=== PATIENT | female | born 1960 | race Caucasian/White ===

== ENCOUNTER 2025-01-12 21:05 | Emergency (ER) | payer SELFPAY ==
[2025-01-12 21:06] VITALS: BP 206/187
[2025-01-12 23:18] VITALS: BP 184/91
[2025-01-13] VITALS: BP 167/90; BMI 32.4
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
[2025-01-13 03:54] VITALS: BP 126/98
== END 2025-01-13 03:57 | disposition home or self-care (01) ==
LOC: EMR 21:05
PROVIDERS: EMERGENCY PHYSICIAN Student in an Organized Health Care Education/Training Program; FAMILY PHYSICIAN Family Medicine
DX: M54.2 Cervicalgia (principal); V49.40XA Driver injured in collision with unspecified motor vehicles in traffic accident, initial encounter; E04.1 Nontoxic single thyroid nodule
CPT/HCPCS: 99284; 70450; 72125